=== PATIENT | female | born 1960 | race Two or more races ===

== ENCOUNTER → 2022-12-29 | Emergency (ER) | payer OTHER ==
[~2022-12-29] VITALS: Ht 149.9 cm; Wt 50.8 kg
[~2022-12-29] MED LIST: BENAZEPRIL HCL5 MG
== END | disposition home or self-care (01) ==
LOC: ER 12:34
PROVIDERS: General Practice
DX: R10.9 Unspecified abdominal pain (principal); K29.90 Gastroduodenitis, unspecified, without bleeding